=== PATIENT | female | born 2000 | race Caucasian/White ===

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

== ENCOUNTER 2020-10-29 10:46 | Emergency (ER) | payer OTHER | END 2020-10-29 13:59 | disposition home or self-care (01) | LOC: FER 10:46 | DX: L50.9 Urticaria, unspecified (principal); Z91.030 Bee allergy status | CPT/HCPCS: J1200; J2930 ==